=== PATIENT | female | born 1965 | race Caucasian/White ===

== ENCOUNTER 2017-01-17 19:55 | Emergency (ER) | payer BC, OTHER ==
[~2017-01-17] VITALS: Ht 180.3 cm; Wt 88.1 kg
[~2017-01-17 19:55] MED LIST: ASPI-496 PO; TAPE100T3 PO; TRAM50TA2 PO
[2017-01-17] MEDS ORDERED: DEXAMETHASONE 4 MG TABLET PO STA (20:36)
[2017-01-17] MEDS ORDERED: DEXAMETHASONE 4 MG TABLET ONE (20:55)
[2017-01-17 21:36] VITALS: BP 119/80
== END 2017-01-17 21:38 | disposition home or self-care (01) ==
LOC: ED 21:32
DX: J41.1 Mucopurulent chronic bronchitis (principal); J02.9 Acute pharyngitis, unspecified; F17.210 Nicotine dependence, cigarettes, uncomplicated
CPT/HCPCS: 71020; 81003; 99285

== ENCOUNTER 2017-03-09 17:01 | Emergency (ER) | payer OTHER ==
[2017-03-09] MEDS ORDERED: HYDROcodone/APAP 5/325 TABLET PO ONE (18:00)
[2017-03-09] MEDS ORDERED: HYDROcodone/APAP 5/325 TABLET ONE (18:06)
[2017-03-09 19:04] VITALS: BP 143/85
== END 2017-03-09 19:06 | disposition home or self-care (01) ==
LOC: ED 18:47
DX: S83.92XA Sprain of unspecified site of left knee, initial encounter (principal); G89.29 Other chronic pain; G45.9 Transient cerebral ischemic attack, unspecified; F17.200 Nicotine dependence, unspecified, uncomplicated; I25.2 Old myocardial infarction; M79.7 Fibromyalgia; X50.1XXA Overexertion from prolonged static or awkward postures, initial encounter; Y93.89 Activity, other specified; Y92.008 Other place in unspecified non-institutional (private) residence as the place of occurrence of the external cause; Y99.8 Other external cause status
CPT/HCPCS: 99284

== ENCOUNTER 2017-07-27 21:12 | Emergency (ER) | payer OTHER ==
[~2017-07-27 21:12] MED LIST changes: -TAPE100T3 PO; +TAPE100T6 PO
[2017-07-27 21:23] VITALS: BP 132/88
[2017-07-27 22:29] LABS: BASOPHILS # (AUTO) 0.05 x10^3/uL (0-0.1); BASOPHILS % (AUTO) 1 % (0-1); EOSINOPHILS # (AUTO) 0.33 x10^3/uL (0-0.4); EOSINOPHILS % (AUTO) 5 % (1-7); LYMPHOCYTES # (AUTO) 2.72 x10^3/uL (1-3.4); LYMPHOCYTES % (AUTO) 38 % (22-44); MD NO; MEAN CORPUSCULAR HEMOGLOBIN 30.8 pg (27.0-34.8); MEAN CORPUSCULAR HGB CONC 33.4 g/dL (32.4-35.8); MEAN PLATELET VOLUME 10.3 fL (7.4-10.4); MONOCYTES # (AUTO) 0.71 x10^3/uL (0.2-0.8); MONOCYTES % (AUTO) 10 % (2-9); NEUTROPHILS # (AUTO) 3.35 x10^3/uL (1.8-6.8); NEUTROPHILS % (AUTO) 47 % (42-75); PLATELET COUNT 286 x10^3/uL (130-400); RED BLOOD COUNT 4.33 x10^6/uL (3.82-5.3); RED CELL DISTRIBUTION WIDTH 13.6 % (9.6-15.2)
[2017-07-27 22:37] LABS: ALANINE AMINOTRANSFERASE 22 U/L (12-78); ALBUMIN 3.7 g/dL (3.4-5.0); ANION GAP 4 mmol/L (5-15); CALCIUM 8.7 mg/dL (8.5-10.1); CHLORIDE 111 mmol/L (98-107); CREATININE 1.01 mg/dL (0.55-1.02)
[2017-07-27 22:41] LABS: ALKALINE PHOSPHATASE 72 U/L (45-117); BILIRUBIN,TOTAL 0.2 mg/dL (0.2-1.0); TROPONIN I < 0.015 ng/mL (0.000-0.045)
== END 2017-07-27 23:16 | disposition home or self-care (01) ==
LOC: ED 23:05
DX: G43.C0 Periodic headache syndromes in child or adult, not intractable (principal); R20.0 Anesthesia of skin; I25.2 Old myocardial infarction; M79.7 Fibromyalgia; Z86.73 Personal history of transient ischemic attack (TIA), and cerebral infarction without residual deficits
CPT/HCPCS: 36415; 70450; 80053; 84484; 85025; 93005; 99285

== ENCOUNTER 2017-11-07 21:15 | Emergency (ER) | payer OTHER ==
[~2017-11-07] VITALS: Ht 180.3 cm; Wt 85.5 kg
[2017-11-07 21:49] VITALS: BP 114/75
[2017-11-07] MEDS ORDERED: ASPI-496 PO (22:09)
[2017-11-07] MEDS ORDERED: DIPHENHYDRAMINE 50 MG/ML, 1ML ONE (22:28)
[2017-11-07] MEDS ORDERED: KETOROLAC 30 MG/1 ML ONE (22:28)
[2017-11-07] MEDS ORDERED: METOCLOPRAMIDE 5 MG/ML, 2ML ONE (22:28)
[2017-11-07] MEDS ORDERED: DIPHENHYDRAMINE 50 MG/ML, 1ML IVPush ONE (22:30)
[2017-11-07] MEDS ORDERED: METOCLOPRAMIDE 5 MG/ML, 2ML IVPush ONE (22:30)
[2017-11-07] MEDS ORDERED: SODIUM CHLORIDE FLUSH 10ML SYR IVF ONE (22:30)
[2017-11-07] MEDS ORDERED: KETOROLAC 30 MG/1 ML IVPush ONE (22:30)
[2017-11-07] MEDS ORDERED: SODIUM CHLORIDE 0.9% 1,000ML IVBOLUS ONE (22:30)
[2017-11-07 22:40] LABS: BASOPHILS # (AUTO) 0.01 x10^3/uL (0-0.1); BASOPHILS % (AUTO) 0 % (0-1); EOSINOPHILS % (AUTO) 0 % (1-7); LYMPHOCYTES # (AUTO) 1.12 x10^3/uL (1-3.4); LYMPHOCYTES % (AUTO) 22 % (22-44); MD NO; MEAN CORPUSCULAR HEMOGLOBIN 30.4 pg (27.0-34.8); MEAN CORPUSCULAR VOLUME 89.4 fL (80-100); MEAN PLATELET VOLUME 10.1 fL (7.4-10.4); MONOCYTES # (AUTO) 0.65 x10^3/uL (0.2-0.8); MONOCYTES % (AUTO) 13 % (2-9); NEUTROPHILS % (AUTO) 66 % (42-75); PLATELET COUNT 173 x10^3/uL (130-400)
[2017-11-07 22:50] LABS: ALBUMIN 2.9 g/dL (3.4-5.0); ANION GAP 10 mmol/L (5-15); CALCIUM 8.4 mg/dL (8.5-10.1); CHLORIDE 107 mmol/L (98-107)
[2017-11-07 22:54] LABS: ALANINE AMINOTRANSFERASE 26 U/L (12-78); ALKALINE PHOSPHATASE 61 U/L (45-117); BILIRUBIN,TOTAL 0.3 mg/dL (0.2-1.0); CREATININE 0.98 mg/dL (0.55-1.02); TOTAL PROTEIN 6.5 g/dL (6.4-8.2)
== END 2017-11-08 00:11 | disposition home or self-care (01) ==
LOC: ED 22:36
DX: R19.7 Diarrhea, unspecified (principal); E87.6 Hypokalemia; I25.2 Old myocardial infarction; Z86.73 Personal history of transient ischemic attack (TIA), and cerebral infarction without residual deficits
CPT/HCPCS: 36415; 80053; 83690; 85025; 87046; 87077; 87252; 87427; 96374; 96375; 99284; J1200; J1885; J2765; J7030

== ENCOUNTER → 2018-05-20 | Outpatient (CLI) | payer OTHER | END | disposition home or self-care (01) | LOC: CFH 14:25 | PROVIDERS: ATTEND Family Medicine | DX: E04.1 Nontoxic single thyroid nodule (principal); R92.2 Inconclusive mammogram; M54.5 Low back pain | CPT/HCPCS: 76536; 77066 ==

== ENCOUNTER → 2018-05-28 | Outpatient (CLI) | payer OTHER | END | disposition home or self-care (01) | LOC: CFH 12:55 | PROVIDERS: ATTEND Family Medicine | DX: M51.36 Other intervertebral disc degeneration, lumbar region (principal); M48.07 Spinal stenosis, lumbosacral region; M12.88 Other specific arthropathies, not elsewhere classified, other specified site | CPT/HCPCS: 72148 ==

== ENCOUNTER 2018-09-10 11:16 | Emergency (ER) | payer OTHER ==
[~2018-09-10] VITALS: Ht 180.3 cm; Wt 82.5 kg
[2018-09-10 11:41] VITALS: BP 123/78
--- NOTE | 2018-09-10 11:46 | NUR ---
no response from lobby [phone]
== END 2018-09-10 12:46 | disposition home or self-care (01) ==
LOC: ED 12:40
DX: K08.89 Other specified disorders of teeth and supporting structures (principal); I25.2 Old myocardial infarction; Z86.73 Personal history of transient ischemic attack (TIA), and cerebral infarction without residual deficits
CPT/HCPCS: 99283

== ENCOUNTER 2018-10-31 04:34 | Emergency (ER) | payer OTHER ==
[~2018-10-31] VITALS: Ht 177.8 cm; Wt 81.7 kg
[2018-10-31] MEDS ORDERED: AMOX-291 PO (04:59)
[2018-10-31] MEDS ORDERED: IBUP-1221 PO (04:59)
--- NOTE | 2018-10-31 05:10 | NUR ---
PT CALLED FROM LOBBY TO ROOM AND AMBULATES WITH A STEADY GAIT.
[2018-10-31] MEDS ORDERED: AMPICILLIN/SULBACTAM 3 GM in SODIUM CHLORIDE 0.9% 100 ML IV ONE (06:00)
[2018-10-31] MEDS ORDERED: SODIUM CHLORIDE FLUSH 10ML SYR IVF ONE (06:00)
[2018-10-31] MEDS ORDERED: HYDROcodone/APAP 5/325 TABLET ONE (06:22)
[2018-10-31] MEDS ORDERED: HYDROcodone/APAP 5/325 TABLET PO ONE (06:30)
--- NOTE | 2018-10-31 06:32 | NUR ---
PT MEDICATED PER MAR.
--- NOTE | 2018-10-31 08:50 | NUR ---
PT. WAS GIVEN DISCHARGE INSTRUCTIONS AND A SCRIPT FOR PAIN. PT. STATES RELIEF FROM PAIN MEDS. PT. VERBALIZED UNDERSTANDING AND WILLINGNESS TO COMPLY. PT. WAS AMBULATORY TO THE DISCHARGE DESK WITH A STEADY GAIT. PT. STATES SHE IS NOT DRIVING.
[2018-10-31 08:52] VITALS: BP 132/88
== END 2018-10-31 08:55 | disposition home or self-care (01) ==
LOC: ED 08:08
DX: K02.9 Dental caries, unspecified (principal); I25.2 Old myocardial infarction; F17.210 Nicotine dependence, cigarettes, uncomplicated; Z86.73 Personal history of transient ischemic attack (TIA), and cerebral infarction without residual deficits
CPT/HCPCS: 96365; 96366; 99283; J0295

== ENCOUNTER → 2018-11-07 | Outpatient (CLI) | payer OTHER ==
[~2018-11-07] MED LIST changes: +AMOX-291 PO; +IBUP-1221 PO
== END | disposition home or self-care (01) ==
LOC: CFH 14:27
PROVIDERS: ATTEND Physician Assistant Surgical
DX: M43.06 Spondylolysis, lumbar region (principal); Z98.1 Arthrodesis status
CPT/HCPCS: 72110; 72131

== ENCOUNTER 2019-01-18 13:00 | Emergency (ER) | payer OTHER ==
[~2019-01-18] VITALS: Ht 180.3 cm; Wt 80.6 kg
[2019-01-18 13:25] VITALS: BP 129/86
[2019-01-18] MEDS ORDERED: LIDOCAINE-MPF 1%, 5ML INFIL ONE (13:30)
[2019-01-18] MEDS ORDERED: DIPH,PERTUSS(ACELL),TET VAC/PF 0.5 ML IM-VACC ONE ×2 (13:30→15:12)
[2019-01-18] MEDS ORDERED: BUPIVACAINE/PF 0.25% INFIL ONE (13:30)
[2019-01-18] MEDS ORDERED: LIDOCAINE-MPF 1%, 5ML ONE (15:11)
[2019-01-18] MEDS ORDERED: CEPHALEXIN 500 MG CAPSULE PO ONE (15:30)
[2019-01-18] MEDS ORDERED: NEOSPORIN OINT. PKT 1 PACKET TP ONE (16:30)
== END 2019-01-18 16:51 | disposition home or self-care (01) ==
LOC: ED 16:25
DX: S62.632B Displaced fracture of distal phalanx of right middle finger, initial encounter for open fracture (principal); X58.XXXA Exposure to other specified factors, initial encounter; Y93.89 Activity, other specified; Y92.009 Unspecified place in unspecified non-institutional (private) residence as the place of occurrence of the external cause; Y99.8 Other external cause status
CPT/HCPCS: 29130; 90471; 90715

== ENCOUNTER 2019-11-16 12:00 | Emergency (ER) | payer OTHER ==
[~2019-11-16] VITALS: Ht 177.8 cm; Wt 85.0 kg
[2019-11-16] MEDS ORDERED: SODIUM CHLORIDE FLUSH 10ML SYR IVF ONE (13:00)
[2019-11-16 13:02] LABS: BASOPHILS # (AUTO) 0.05 x10^3/uL (0-0.1); BASOPHILS % (AUTO) 1 % (0-1); EOSINOPHILS # (AUTO) 0.18 x10^3/uL (0-0.4); EOSINOPHILS % (AUTO) 4 % (1-7); LYMPHOCYTES # (AUTO) 1.43 x10^3/uL (1-3.4); LYMPHOCYTES % (AUTO) 33 % (22-44); MD NO; MEAN CORPUSCULAR HEMOGLOBIN 30.8 pg (27.0-34.8); MEAN CORPUSCULAR HGB CONC 33.8 g/dL (32.4-35.8); MEAN CORPUSCULAR VOLUME 91.2 fL (80-100); MEAN PLATELET VOLUME 8.8 fL (7.4-10.4); MONOCYTES # (AUTO) 0.41 x10^3/uL (0.2-0.8); MONOCYTES % (AUTO) 9 % (2-9); NEUTROPHILS # (AUTO) 2.31 x10^3/uL (1.8-6.8); NEUTROPHILS % (AUTO) 53 % (42-75); PLATELET COUNT 256 x10^3/uL (130-400); RED BLOOD COUNT 4.22 x10^6/uL (3.82-5.3); RED CELL DISTRIBUTION WIDTH 12.8 % (9.6-15.2)
[2019-11-16 13:13] LABS: ALBUMIN 3.7 g/dL (3.4-5.0); ANION GAP 5 mmol/L (5-15); CALCIUM 8.7 mg/dL (8.5-10.1); CHLORIDE 111 mmol/L (98-107); CREATININE 0.99 mg/dL (0.55-1.02)
--- NOTE | 2019-11-16 13:15 | NUR ---
MULTIPLE ATTEMPTS MADE TO START IV WITHOUT SUCCESS. PT REFUSING FURTHER ATTEMPTS. PROVIDER NOTIFIED.
[2019-11-16 14:14] VITALS: BP 116/73
== END 2019-11-16 14:16 | disposition home or self-care (01) ==
LOC: ED 14:00
DX: G62.9 Polyneuropathy, unspecified (principal); G89.29 Other chronic pain; I25.2 Old myocardial infarction; R94.31 Abnormal electrocardiogram [ECG] [EKG]; Z86.72 Personal history of thrombophlebitis; Z90.710 Acquired absence of both cervix and uterus
CPT/HCPCS: 36415; 70450; 71045; 80048; 82040; 85025; 93005; 99285

== ENCOUNTER → 2020-02-16 | Outpatient (CLI) | payer OTHER | END | disposition home or self-care (01) | LOC: EDSTATUS 01-27 14:45 → CFH 11:23 | PROVIDERS: ATTEND Family Medicine | DX: Z12.31 Encounter for screening mammogram for malignant neoplasm of breast (principal) | CPT/HCPCS: 77067 ==

== ENCOUNTER 2020-04-24 13:22 | Emergency (ER) | payer OTHER ==
[~2020-04-24] VITALS: Ht 180.3 cm; Wt 81.8 kg
[2020-04-24 13:31] VITALS: BP 145/80
--- NOTE | 2020-04-24 13:41 | NUR ---
PT BIBA. PT STATES SHE WAS RUNNING UP STAIRS, TRIPPED AND BRACED HER FALL WITH HER HAND. PT HAS PAIN TO LEFT WRIST THAT RADIATES UP ARM TO ELBOW. PER EMS PT HIT HER HEAD WELL, HOWEVER PT HAS NO STATED PAIN TO HEAD.
--- NOTE | 2020-04-24 13:41 | NUR ---
PT OFF FLOOR TO XRAY
[2020-04-24] MEDS ORDERED: OXYcodone/APAP 5/325MG TABLET ONE (13:54)
[2020-04-24] MEDS ORDERED: PLEASE ENTER HEIGHT AND WEIGHT MC SCH (14:00)
[2020-04-24] MEDS ORDERED: OXYcodone/APAP 5/325MG TABLET PO ONE (14:00)
--- NOTE | 2020-04-24 14:34 | NUR ---
Break RN note: Pt ambulatory to bathroom and back to bed without difficulty. Pt positioned for comfort in bed, ice pack applied to L wrist.
--- NOTE | 2020-04-24 15:55 | NUR ---
AT BEDSIDE ANSWERING QUESTIONS ABOUT FRACTURES AND POC. PT HAS PAIN BUT DECLINES FURTHER MEDICATION SHE HAS TO DRIVE. PT THEN TO DISCHARGE WINDOW STEADY GAIT.
== END 2020-04-24 15:59 | disposition home or self-care (01) ==
LOC: ED 13:45
DX: S52.515A Nondisplaced fracture of left radial styloid process, initial encounter for closed fracture (principal); I25.2 Old myocardial infarction; Z86.73 Personal history of transient ischemic attack (TIA), and cerebral infarction without residual deficits; W01.0XXA Fall on same level from slipping, tripping and stumbling without subsequent striking against object, initial encounter; Y93.01 Activity, walking, marching and hiking; Y92.89 Other specified places as the place of occurrence of the external cause; Y99.8 Other external cause status
CPT/HCPCS: 29125; 99284

== ENCOUNTER 2020-04-30 19:29 | Emergency (ER) | payer OTHER ==
[~2020-04-30] VITALS: Ht 167.6 cm; Wt 68.3 kg
[2020-04-30 19:35] VITALS: BP 136/87
== END 2020-04-30 21:30 | disposition home or self-care (01) ==
LOC: ED 20:55
DX: M25.532 Pain in left wrist (principal); F17.210 Nicotine dependence, cigarettes, uncomplicated
CPT/HCPCS: 99282; 99406